=== PATIENT | female | born 1960 | race Caucasian/White ===

== ENCOUNTER → 2017-02-23 | Outpatient (CLI) | payer OTHER ==
[~2017-02-23] MED LIST: BACTRIM,SEPT1 TABLET PO; BIOTIN PO; CEREFOLIN TABL1 EACH PO; CO Q 10 PO; D3 + K2 DOTS 11 EACH PO; DAILY VALUE1 EACH PO; FIBER LAXATIV0.52 GM PO; FISH OIL PO; FLONASE16 G1 BOTH NARES; GLUCOPHAGE500 MG PO; HYDROCHLOROTH12.5 M1 PO; KEFLEX500 MG PO; LIPITOR80 MG PO; METFORMIN HCL500 MG PO; PERCOCET 5/31 TABLET PO; SINGULAIR10 MG PO; SKELAXIN800 MG PO; VITAMIN A DAY1 EACH PO; ZESTRIL,PRINIV2.5 MG PO; ZESTRIL10 MG PO
== END | disposition home or self-care (01) ==
LOC: OPR 07:40 → EDSTATUS 08:00 → OPR 08:00
PROC: 0TB13ZX Excision of Left Kidney, Percutaneous Approach, Diagnostic (ICD-10-PCS; principal; 2017-02-23)
DX: R80.9 Proteinuria, unspecified (principal); E11.9 Type 2 diabetes mellitus without complications; N20.0 Calculus of kidney; E78.5 Hyperlipidemia, unspecified; B19.20 Unspecified viral hepatitis C without hepatic coma; Z91.041 Radiographic dye allergy status
CPT/HCPCS: 77012; 88305; J3010

== ENCOUNTER → 2017-04-19 | Outpatient (CLI) | payer OTHER | END | disposition home or self-care (01) | LOC: CDC 14:06 | DX: N13.5 Crossing vessel and stricture of ureter without hydronephrosis (principal) | CPT/HCPCS: 93000 ==